=== PATIENT | female | born 1950 | race Caucasian/White ===

== ENCOUNTER 2024-01-21 15:45 | Emergency (ER) | payer OTHER, MEDICAID ==
[~2024-01-21] VITALS: Ht 162.6 cm; Wt 68.0 kg
[2024-01-21 16:10] VITALS: RESP 18
[2024-01-21 17:32] LABS: STREPTOCOCCUS A SCREEN (RAPID) NEGATIVE (NEGATIVE)
[2024-01-21 17:49] LABS: INFLUENZA TYPE A Negative (NEGATIVE); INFLUENZA TYPE B NEGATIVE (NEGATIVE)
[2024-01-21] MEDS ORDERED: AZIT500T PO (18:23)
[2024-01-21] MEDS ORDERED: [UNRECOGNIZED DRUG - CODE] PO (18:24)
[2024-01-21 18:38] VITALS: BP_SYST 135; PULSE 80; RESP 18; TEMP 97.8; O2SAT 98
== END 2024-01-21 18:38 | disposition home or self-care (01) ==
LOC: SED 15:45
DX: J40 Bronchitis, not specified as acute or chronic (principal); Z20.822 Contact with and (suspected) exposure to COVID-19; I10 Essential (primary) hypertension; Z79.899 Other long term (current) drug therapy; Z79.2 Long term (current) use of antibiotics
CPT/HCPCS: 36415; 71045; 86403; 87081; 99284